=== PATIENT | female | born 1955 | race Caucasian/White ===

== ENCOUNTER 2019-02-17 14:52 | Observation (INO) ==
--- NOTE | 2019-02-17 15:17 | Emergency Department Note ---
Disposition Clinical Impression: TIA (transient ischemic attack) Qualifiers: Transient cerebral ischemia type: unspecified Qualified Code(s): G45.9 - Transient cerebral ischemic attack, unspecified Disposition: Admitted As Inpatient Condition: Fair Referrals: Cecelia Woodward CNP [Primary Care Provider] - Forms: ED Satisfaction Letter Time of Disposition: 17:06 General Adult HPI - General Chief complaint: ED Weakness Stated complaint: Weakness Source: EMS Limitations: no limitations Nursing Notes Reviewed: Yes Vital Signs Reviewed: Yes - History of Present Illness HPI Narrative: The patient presents per EMS and I did see her upon arrival and she did have an episode of weakness at home with significant weakness to both legs which occurred at 2:15 this afternoon. She feels that her speech is slurred. The patient does have a history of stroke. She denies any localized numbness or weakness of the extremities, facial droop or confusion. No pain, head, neck, chest, abdomen or back. has not yet arrived. She has no other complaints. Social history: Smoker. She does use oxygen at night. No alcohol or drugs Pain Scale: 0 - Related Data Home Medications Medication Instructions Recorded Confirmed Albuterol Sulfate [Proair Hfa] 2 puff IH Q4-6H PRN 11/01/17 11/07/17 Ascorbic Acid [Vitamin C] 500 mg PO DAILY 11/01/17 11/07/17 Aspirin Enteric Coated [Aspirin EC] 81 mg PO DAILY 11/01/17 11/07/17 Budesonide/Formoterol 160/4.5 2 puff IH BIDR 11/01/17 11/07/17 [Symbicort 160/4.5] Calcium Carbonate [Calcium] 600 mg PO DAILY 11/01/17 11/07/17 Cholecalciferol (D-3) [Vitamin D] 2,000 unit PO DAILY 11/01/17 11/07/17 Cyanocobalamin (Vitamin B-12) 500 mcg PO DAILY 11/01/17 11/07/17 [Vitamin B-12] Estradiol [Estrace] 1 appl VG 2XW 11/01/17 11/07/17 FLUoxetine HCl [Prozac] 20 mg PO BID 11/01/17 11/07/17 Fexofenadine HCl 60 mg PO BID PRN 11/01/17 11/07/17 Fluticasone Propionate Nasal 50 mcg NS BID PRN 11/01/17 11/07/17 [Flonase] Folic Acid 1 mg PO DAILY 11/01/17 11/07/17 Gabapentin [Neurontin] 600 mg PO TID 11/01/17 11/07/17 Latanoprost [Xalatan] 1 drop OP HS 11/01/17 11/07/17 Multivitamin [One Daily Essential] 1 each PO DAILY 11/01/17 11/07/17 [place]-3/Dha/Epa/Fish Oil [Fish Oil 1,000 mg PO DAILY 11/01/17 11/07/17 1,000 mg Softgel] Trazodone HCl 75 mg PO HS 11/01/17 11/07/17 Umeclidinium Bernice [Incruse 62.5 mcg IH DAILY 11/01/17 11/07/17 Ellipta] Vitamin E Acid Succinate [Vitamin 400 units PO DAILY 11/01/17 11/07/17 E] diazePAM [Valium] 10 mg PO BID PRN 11/01/17 11/07/17 Previous Rx's Medication Instructions Recorded Atorvastatin [Lipitor] 20 mg PO HS #30 tablet 11/03/17 Clopidogrel [Plavix] 75 mg PO DAILY #30 tablet 11/03/17 Lisinopril-HCTZ 20-12.5 [Prinzide 1 each PO DAILY #30 tablet 11/03/17 20-12.5] cloNIDine HCl [CloNIDine HCl] 0.1 mg PO TID #90 tablet 11/03/17 Allergies Allergy/AdvReac Type Severity Reaction Status Date / Time naproxen [From Aleve] AdvReac Nose Bleed Verified 04/30/16 21:37 All systems ED: reviewed and negative except as stated. Past Medical History - Past Medical History Medical history: Reports: COPD, CVA, fibromyalgia, hyperlipidemia, hypertension, pulmonary embolus Surgical history: Reports: cholecystectomy, hysterectomy Psychiatric history: Reports: anxiety, depression - Social History Smoking Status: Current every day smoker Smokeless Tobacco Status: No Alcohol use: Reports: rarely Drug use: Reports: none Physical Exam CONSTITUTIONAL: Alert and oriented X3, well-nourished, well appearing, in no apparent distress HEAD: Normocephalic; atraumatic. EYES: PERRL, no scleral icterus. NOSE: The nose is normal in appearance without rhinorrhea RESP: Normal chest excursion with respiration; breath sounds clear and equal bilaterally; no wheezes, rhonchi, or rales CARD: Regular rhythm, without murmurs, rub or gallop ABD: Non-distended; non-tender, soft,without rigidity, rebound or guarding SKIN: Normal for age and race; warm and dry; no apparent lesions Neuro: NIH stroke scale is 0see NIH documentation - General Limitations: no limitations General appearance: alert Course Vital Signs Temperature 99.2 F 02/17/19 14:57 Pulse Rate 65 02/17/19 14:57 Respiratory Rate 18 02/17/19 14:57 Blood Pressure 120/58 02/17/19 14:57 O2 Sat by Pulse Oximetry 89 02/17/19 14:57 Temperature 99.2 F 02/17/19 14:57 Pulse Rate 65 02/17/19 14:57 Respiratory Rate 18 02/17/19 14:57 Blood Pressure 120/58 02/17/19 14:57 O2 Sat by Pulse Oximetry 89 02/17/19 14:57 Oxygen Delivery Oxygen Delivery Room Air Medical Decision Making - MDM Narrative Medical decision making narrative: The patient's speech does not seem abnormal to me, her NIH stroke scale is 0, we will wait for the to arrive. The patient does have testing ordered including head CAT scan and this may have been from a TIA however at this point the patient is not a thrombolytic candidate due to the extremely low stroke scale as well as the fact that I have not diagnosed her as having a stroke. 1517 I did review the patient's test results without evidence of intracranial hemorrhage him a chest x-ray was reviewed, labs do not show concerning abnormality I did speak with her again and the is now here who says that in addition to the one hour of slurred speech which she had and is now resolved she also did have about 10 or 15 minutes of confusion which is also now resolved. The symptoms are most consistent with TIA. Patient will be admitted. I will do a bedside swallow study because she wants to eat so the nurse can do that here and if this is okay she will be fed. Again her symptoms are completely resolved. She does take an aspirin a day so no additional anticoagulation is given at this time. The hospitalist is paged. 1701 I did speak with the hospitalist Dr. La who accepts the patient for admission 1712 I did review the patient's EKG showing sinus bradycardia with a rate of 58 and some baseline artifact but without acute ischemic change 1739 - Medical Records Medical records reviewed: Yes I reviewed the patient's medical records. - Lab Data Lab results reviewed: Yes I reviewed the patient's lab results. Result diagrams: 02/17/19 15:27 02/17/19 15:27 Lab Results 02/17/19 02/17/19 02/17/19 Range/Units 15:17 15:27 15:27 WBC 10.6 (4.3-11.1) K/mcL RBC 5.05 H (3.82-4.97) M/mcL Hgb 15.2 (11.5-15.4) g/dL Hct 46.5 H (35.3-44.9) % MCV 92.1 (83.0-100.0) fL MCH 30.1 (28.0-33.3) pg MCHC 32.7 (31.6-35.5) g/dL RDW 12.5 (11.5-14.5) % Plt Count 450 H (140-400) K/mcL MPV 9.8 (9.4-12.4) fL Immature Gran % 0.4 (0-4) % Seg Neutrophils % 67.9 % Lymphocytes % 20.7 % Monocytes % 9.7 % Eosinophils % 0.8 % Basophils % 0.5 % Neutrophils # 7.2 (1.6-8.9) K/mcL Lymphocytes # 2.2 (0.6-4.6) K/mcL Monocytes # 1.0 (0.0-1.3) K/mcL Eosinophils # 0.1 (0.0-0.6) K/mcL Basophils # 0.1 (0.0-0.2) K/mcL Sodium 138 (136-145) mEq/L Potassium 3.9 (3.5-5.1) mEq/L Chloride 104 (98-107) mEq/L Carbon Dioxide 27 (23-29) mEq/L BUN 15 (8-23) mg/dL Creatinine 0.71 (0.60-1.20) mg/dL Est GFR ( Amer) > 60 (> 60) Est GFR (Non-Af Amer) > 60 (> 60) BUN/Creatinine Ratio 21 (6-26) Glucose 74 (70-105) mg/dL Calculated Osmolality 285 (280-300) Calcium 9.3 (8.6-10.3) mg/dL Total Bilirubin 0.8 (0.3-1.0) mg/dL AST 38 (13-39) Units/L ALT 23 (7-52) Units/L Alkaline Phosphatase 86 (34-104) Units/L Troponin I < 0.03 (< 0.04) ng/mL Serum Total Protein 7.7 (6.4-8.9) g/dL Albumin 3.8 (3.5-5.7) g/dL Globulin 3.9 H (2.4-3.5) g/dL Albumin/Globulin Ratio 1.0 L (1.1-2.2) Urine Color Dark Yellow (Yellow) Urine Clarity Clear (Clear) Urine pH 6.0 (5.0-8.0) pH Units Ur Specific [place] 1.021 (1.010-1.025) Urine Protein 30 H (Neg-Trace) mg/dL Urine Glucose (UA) Normal (Normal) mg/dL Urine Ketones Negative (Negative) mg/dL Urine Blood Negative (Negative) Urine Nitrite Negative (Negative) Urine Bilirubin Negative (Negative) Urine Urobilinogen Normal (Normal) mg/dL Ur Leukocyte Esterase Moderate H (Negative) Urine Microscopic RBC 0-3 (0-3) per hpf Urine Microscopic WBC 5-15 H (0-3) per hpf Ur Squamous Epith Cells Many H (None-Few) per lpf Urine Bacteria Few (None-Few) per hpf Hyaline Casts None Seen (None-Few) per lpf Ur Culture Indicated? NO. A (NO) - Radiology Data Radiology results reviewed: Yes I reviewed the patient's radiology results.
[2019-02-17 15:37] LABS: Basophils # 0.1 K/mcL (0.0-0.2); Basophils % 0.5 %; Eosinophils # 0.1 K/mcL (0.0-0.6); Eosinophils % 0.8 %; Hematocrit 46.5 % (35.3-44.9); Hemoglobin 15.2 g/dL (11.5-15.4); Immature Granulocytes % 0.4 % (0-4); Lymphocytes # 2.2 K/mcL (0.6-4.6); Lymphocytes % 20.7 %; Mean Corpuscular HGB Conc 32.7 g/dL (31.6-35.5); Mean Corpuscular Hemoglobin 30.1 pg (28.0-33.3); Mean Corpuscular Volume 92.1 fL (83.0-100.0); Mean Platelet Volume 9.8 fL (9.4-12.4); Monocytes % 9.7 %; Neutrophils # 7.2 K/mcL (1.6-8.9); Platelet Count 450 K/mcL (140-400); Red Blood Count 5.05 M/mcL (3.82-4.97); Red Cell Distribution Width 12.5 % (11.5-14.5); Segmented Neutrophils % 67.9 %
[2019-02-17 15:43] LABS: Bilirubin,Urine Negative (Negative); Blood,Urine Negative (Negative); Clarity,Urine Clear (Clear); Color,Urine Dark Yellow (Yellow); Glucose,Urine (UA) Normal (Normal); Ketones,Urine Negative (Negative); Leukocyte Esterase,Urine Moderate (Negative); Nitrite,Urine Negative (Negative); Protein,Urine 30 mg/dL (Neg-Trace); Specific Gravity,Urine 1.021 (1.010-1.025); Urobilinogen,Urine Normal (Normal)
[2019-02-17 15:46] LABS: Bacteria,Urine Few per hpf (None-Few); Hyaline Casts,Urine None Seen per lpf (None-Few); RBC,Urine 0-3 per hpf (0-3); Squamous Epithelial Cell,Urine Many per lpf (None-Few)
[2019-02-17 16:02] LABS: Alanine Aminotransferase 23 Units/L (7-52); Albumin 3.8 g/dL (3.5-5.7); Alkaline Phosphatase 86 Units/L (34-104); Aspartate Amino Transferase 38 Units/L (13-39); BUN/Creatinine Ratio 21 (6-26); Bilirubin,Total 0.8 mg/dL (0.3-1.0); Blood Urea Nitrogen 15 mg/dL (8-23); Calcium 9.3 mg/dL (8.6-10.3); Carbon Dioxide 27 mEq/L (23-29); Chloride 104 mEq/L (98-107); Globulin 3.9 g/dL (2.4-3.5); Glucose 74 mg/dL (70-105); Osmolality,Calculated 285 (280-300); Potassium 3.9 mEq/L (3.5-5.1); Sodium 138 mEq/L (136-145); Total Protein 7.7 g/dL (6.4-8.9); Troponin I < 0.03 ng/mL (< 0.04); eGFR For Non-African Americans > 60 (> 60)
[2019-02-17] MEDS ORDERED: Naloxone 0.4 MG/ML INJ IVP PRN (18:51)
[2019-02-17] MEDS: Gabapentin 300 MG CAPSULE PO SCH (22:15)
--- NOTE | 2019-02-17 22:56 | Internal Med History&Physical ---
Date of Encounter: 02/17/19 Time of Encounter: 19:00 Internal Medicine - H&P: HPI Chief complaint: Weakness in legs Admitted From: Home Plans for Post Hospital Care: Home History of present illness: The patient is a 63-year-old woman. It was today afternoon, when she developed significant weakness to her both legsneeded assistance for walking. She did not develop any localized numbness or weakness of her extremities. Her speech is somewhat garbled. However, she tells me that it is from missing her artificial teeth. The weakness described above lasted for about 10-15 minutes. I did see her walking without difficulties, when I arrived to the room. She feels normal self at the time of my examination. PAST MEDICAL HX: She has been treated for hypertension, hyperlipidemia, COPD, and fibromyalgia. She was diagnosed with a CVA and pulmonary embolus in the past. She has been treated for depression and anxiety. She had cholecystectomy and hysterectomy. PAST FAMILY HX: See below PAST SOCIAL HX: She is a current every day smoker. She drinks alcohol extremely rarely. There is no history of illicit drug use. REVIEW OF SYSTEMS: All 14 organ systems were reviewed by me with the patient. Positive and pertinent negative findings are listed above. The rest of organ systems is negative. PHYSICAL EXAM: Skin: Free of rash and discoloration. Eyes: Sclera is white. There is no discharge from eyes. ENMT: Oral/pharyngeal mucosa is normal in appearance. There is no discharge from nose or ears. Respiratory: Normal breath sounds with no crackles and wheezes bilaterally. CV: Heart is regular with no gallop or murmur. GI: Abdomen is flat and soft with no palpable mass or visceromegaly. : There is no tenderness in patient's flanks bilaterally. Neuro exam: He has good strength in upper and lower extremities. He has normal eye movements. Psychiatric: He has normal affect. His thought process is appropriate to the situation. ADDITIONAL DATA: Portable chest x-ray shows chronic appearing coarse interstitial densities. CT of the head does not show any acute intracranial abnormality. It shows moderate chronic small ischemic disease. CBC shows hemoglobin of 15.2 with WBC of 10.6 thousand and platelet count of 450,000. BMP and hepatic panel are normal. UA shows 5-15 urine microscopic WBC with moderate leukocyte esterase and negative nitrate. She has no urinary symptoms. A/P: An episode of weakness in her both legs. Could be secondary to postural hypotension and/or some cardiac arrhythmia. Doubt it represents a TIA. I will continue her Plavix. She had a CTA of neck in October 2017. There was no significant hemodynamically abnormality. Her echocardiogram from October 2017 showed normal findings. She will be likely discharged home tomorrow after 24-hour observation. Her other problems are mentioned in past medical history. They are chronic/stable/under control. Past Med Surg Social Fam HX - Past Medical History Medical history: COPD, CVA, fibromyalgia, hyperlipidemia, hypertension, pulmonary embolus Psychiatric history: anxiety, depression - Past Surgical History Surgical History: cholecystectomy, hysterectomy Additional surgical history: ear sx - Social History Smoking Status: Current every day smoker Packs per day: half Smokeless Tobacco Status: No Alcohol use: rarely Drug use: none - Family History Father Living Status: Age at : 78 Hx Family Neurologic Disorders: Yes (ALZ, Dementia) Mother Living Status: Age at : 59 Cause of : bone cancer Internal Medicine - H&P: Meds Calcium Carbonate [Calcium] 600 mg PO DAILY 11/01/17 [History] Cholecalciferol (D-3) [Vitamin D] 2,000 unit PO DAILY 11/01/17 [History] Cyanocobalamin (Vitamin B-12) [Vitamin B-12] 500 mcg PO DAILY 11/01/17 [History] FLUoxetine HCl [Prozac] 20 mg PO BID 11/01/17 [History] Fexofenadine HCl 60 mg PO BID PRN 11/01/17 [History] Gabapentin [Neurontin] 600 mg PO TID 11/01/17 [History] Clopidogrel [Plavix] 75 mg PO DAILY #30 tablet 11/03/17 [Rx] Allergy/AdvReac Type Severity Reaction Status Date / Time naproxen [From Aleve] AdvReac Nose Bleed Verified 04/30/16 21:37 - Constitutional Vitals: Temp Pulse Resp BP Pulse Ox 97.7 F 55 16 139/81 93 02/17/19 18:41 02/17/19 18:41 02/17/19 18:41 02/17/19 18:41 02/17/19 18:41 General appearance: Present: A&O X 3, no acute distress, answers questions appr opriately Exam: xx Internal Med - H&P Results - Labs CBC & Chem 7: 02/17/19 15:27 02/17/19 15:27 Labs: Short CBC 02/17/19 Range/Units 15:27 WBC 10.6 (4.3-11.1) K/mcL Hgb 15.2 (11.5-15.4) g/dL Hct 46.5 H (35.3-44.9) % Plt Count 450 H (140-400) K/mcL Neutrophils # 7.2 (1.6-8.9) K/mcL BMP 02/17/19 15:27 Sodium 138 Potassium 3.9 Chloride 104 Carbon Dioxide 27 BUN 15 Creatinine 0.71 Glucose 74 Calcium 9.3 Cardiac Enzymes 02/17/19 Range/Units 15:27 Troponin I < 0.03 (< 0.04) ng/mL Liver Function 02/17/19 Range/Units 15:27 Total Bilirubin 0.8 (0.3-1.0) mg/dL AST 38 (13-39) Units/L ALT 23 (7-52) Units/L Alkaline Phosphatase 86 (34-104) Units/L Albumin 3.8 (3.5-5.7) g/dL Urine 02/17/19 Range/Units 15:17 Urine Color Dark Yellow (Yellow) Urine Clarity Clear (Clear) Urine pH 6.0 (5.0-8.0) pH Units Ur Specific [place] 1.021 (1.010-1.025) Urine Protein 30 H (Neg-Trace) mg/dL Urine Glucose (UA) Normal (Normal) mg/dL - Impressions ITS Impressions Chest X-Ray 02/17/19 15:17 IMPRESSION: Findings of congestive heart failure on a background of chronic interstitial lung disease possibly related to sequela from smoking. Calcific atherosclerotic disease aorta. D/ / Logan Taylor / Logan Taylor Interpreting Provider: Logan Taylor Head CT 02/17/19 15:18 IMPRESSION: No acute intracranial abnormality. Moderate chronic small ischemic disease. D/ / Rufino Ashley / Rufino Ashley Interpreting Provider: Rufino Ashley - Assessment and Plan (1) Weakness of both legs Current Visit: Yes Status: Acute (2) Old cerebrovascular accident (CVA) without late effect Current Visit: Yes Status: Chronic (3) Hypertension Current Visit: Yes Status: Chronic Qualifiers: Hypertension type: essential hypertension Qualified Code(s): I10 - Essential (primary) hypertension - Time Spent With Patient Total time spent is greater than 50% in coordination of care (as documented) at patient's floor/unit and/or counseling patient: 25 - 35 minutes
[2019-02-18] MEDS: Gabapentin 300 MG CAPSULE PO SCH (08:17)
[2019-02-18] MEDS ORDERED: Cholecalciferol (D-3) 1,000 UNIT TABLET PO SCH (09:00)
[2019-02-18] MEDS ORDERED: Loratadine 10 MG TABLET PO PRN (12:02)
[2019-02-18] MEDS ORDERED: amLODIPine 5 MG TABLET PO SCH (12:15)
[2019-02-18 12:47] VITALS: BP 133/85
--- NOTE | 2019-02-18 12:52 | Discharge Summary ---
Orders not resulted at time of discharge: Pending orders 02/17/19 15:17 ECG 12 lead ECG [ECG] Stat Date of Encounter: 02/18/19 Time of Encounter: 12:50 - Discharge Diagnosis (1) Hypertension Priority: Secondary Status: Chronic Qualifiers: Hypertension type: essential hypertension Qualified Code(s): I10 - Essential (primary) hypertension (2) Weakness of both legs Priority: Primary Status: Resolved (3) Old cerebrovascular accident (CVA) without late effect Priority: Secondary Status: Chronic Hospital course: Ms. Aguirre is a 63 year old female with past medical history of hypertension, hyperlipidemia, COPD, and fibromyalgia who was admitted for acute lower extremity weakness. Patient was admitted for concern for TIA and closely monitored overnight. Patient's workup remained negative and patient reported complete resolution of her presenting symptoms. Patient was seen and examined with family and RN present at bedside. Patient reports resolution of all her presenting symptoms and wishes to be discharged home today. Patient denies any discomfort at this time. Labs and vitals are reviewed. Patient is medically stable for discharge to home with outpatient follow-up with PCP. Patient and family demonstrated understanding of the diagnosis and agree with the discharge plan. Discharge discussed with: patient, family, nurse - Time Spent with Patient Total time spent providing and/or coordinating discharge services: Time spent: Less than 30 minutes - Discharge Medications Prescriptions: Continue Cholecalciferol (D-3) [Vitamin D] 2,000 unit PO DAILY FLUoxetine HCl [Prozac] 20 mg PO BID Gabapentin [Neurontin] 600 mg PO BID Fexofenadine HCl 60 mg PO BID PRN PRN Reason: Allergy Symptoms Cyanocobalamin (Vitamin B-12) [Vitamin B-12] 500 mcg PO DAILY Calcium Carbonate [Calcium] 600 mg PO DAILY Clopidogrel [Plavix] 75 mg PO DAILY #30 tablet Trazodone HCl 150 mg PO HS Losartan Potassium 50 mg PO DAILY Amlodipine Besylate 5 mg PO DAILY Home Medications: Calcium Carbonate [Calcium] 600 mg PO DAILY 11/01/17 [History] Cholecalciferol (D-3) [Vitamin D] 2,000 unit PO DAILY 11/01/17 [History] Cyanocobalamin (Vitamin B-12) [Vitamin B-12] 500 mcg PO DAILY 11/01/17 [History] FLUoxetine HCl [Prozac] 20 mg PO BID 11/01/17 [History] Fexofenadine HCl 60 mg PO BID PRN 11/01/17 [History] Gabapentin [Neurontin] 600 mg PO BID 11/01/17 [History] Clopidogrel [Plavix] 75 mg PO DAILY #30 tablet 11/03/17 [Rx] Amlodipine Besylate 5 mg PO DAILY 02/18/19 [History] Losartan Potassium 50 mg PO DAILY 02/18/19 [History] Trazodone HCl 150 mg PO HS 02/18/19 [History] Allergies/Adverse Reactions: Allergy/AdvReac Type Severity Reaction Status Date / Time naproxen [From Aleve] AdvReac Nose Bleed Verified 04/30/16 21:37 Date of admission: 02/17/19 18:11 Primary care physician: Cecelia Woodward CNP Discharging clinician: Brittany Nj Anticipated date of discharge: 02/18/19 - Constitutional Vitals: Temp Pulse Resp BP Pulse Ox 98.4 F 80 15 133/85 89 02/18/19 12:46 02/18/19 12:46 02/18/19 12:46 02/18/19 12:46 02/18/19 12:46 General appearance: Present: A&O X 3, no acute distress, answers questions appropriately Exam: General: No acute distress, AAO x 3 HEENT: EOMI, NC/AT, no scleral icterus, PERRLA Respiratory: Clear to auscultate bilaterally, no wheezing, no rales Cardiovascular: Regular, Rate, Rhythm, No murmurs GI: Soft, Non tender, non distended, normal bowel sounds Ext: No edema, no tenderness, positive pulses Neuro: AAO x 3, no focal deficits, CN II-XII intact - Patient Status Disposition: Home, Self-Care Condition: Good Functional capacity at discharge: independent ambulation - Discharge Instructions Instructions: Transient Ischemic Attack (DC), Chronic Hypertension (DC) Follow Up With: Cecelia Woodward CNP [Primary Care Provider] - Additional Instructions: 1. Please follow-up with your primary care physician within 5 days after your discharge from the hospital 2. Please resume all your home medications as prescribed by your primary care physician. - Diet and Activity Activity: resume usual activities as tolerated Diet: low fat, low cholesterol, low salt diet
[2019-02-18] MEDS ORDERED: FLUoxetine 20 MG CAPSULE PO SCH (21:00)
[2019-02-19] MEDS ORDERED: Cyanocobalamin (B-12) 1,000 MCG TABLET PO SCH (09:00)
--- NOTE | 2019-02-22 07:57 | Electrocardiograph Report ---
[place] [id number] Test Date: 2019-02-17 Pat Name: Zuleyka Aguirre Department: [id number] Room: 3B45 Gender: F Core Shaper: : 1955 Requested By: Chilo Evans Order Number: [id number] Reading MD: Villa Farmer Measurements Intervals [place] Rate: 58 P: 44 ND: 141 QRS: 15 QRSD: 136 T: 75 QT: 426 QTc: 419 Interpretive Statements Sinus rhythm Nonspecific ST-T changes Artifact complicates interpretation, consider repeat ECG Electronically Signed On 02-22-2019 7:56:30 EDT by Villa Farmer
== END 2019-02-18 13:45 | disposition home or self-care (01) ==
LOC: 3BNU 14:52 → EMEROOARM 14:52 → SUATTDRO 18:11 → 3BNU 18:21
PROVIDERS: ADMIT Internal Medicine; ATTEND Internal Medicine

== ENCOUNTER 2020-05-07 13:45 | Observation (INO) ==
[2020-05-07] MEDS ORDERED: Lidocaine/EPI 1:200k 1% PF 10 ML VIAL ONE ×2 (14:09→16:14)
[2020-05-07] MEDS ORDERED: Ringers Solution, Lactated 1,000 ML IVC SCH (14:15)
[2020-05-07] MEDS ORDERED: *HR* Promethazine 25 MG/ML VIAL IVP PRN ×2 (14:32→21:18)
[2020-05-07] MEDS ORDERED: Ondansetron 4 MG/2 ML VIAL IVP ONE (14:32)
[2020-05-07] MEDS ORDERED: *HR* OxyCODONE Immed Rel 5 MG TABLET PO PRN (14:32)
[2020-05-07] MEDS ORDERED: CeFAZolin Syr 2,000MG/20 ML 2,000 MG/20 ML SYRINGE IVPB ONE (14:41)
[2020-05-07] MEDS ORDERED: Ondansetron 4 MG/2 ML VIAL ONE (15:47)
[2020-05-07] MEDS ORDERED: *HR* FentaNYL (PF) 100 MCG/2 ML VIAL ONE ×2 (15:47→16:59)
[2020-05-07] MEDS ORDERED: Lidocaine -MPF 2% 2 ML VIAL ONE (15:47)
[2020-05-07] MEDS ORDERED: *HR* Midazolam HCl 2 MG/2 ML VIAL ONE (15:48)
[2020-05-07] MEDS ORDERED: *HR* Propofol 200 MG/20 ML VIAL IVP ONE (15:48)
[2020-05-07] MEDS ORDERED: Dexamethasone 4 MG/ML VIAL ONE ×2 (15:50→16:36)
[2020-05-07] MEDS ORDERED: Ropivacaine/PF 0.5% 30 ML VIAL ONE (15:53)
[2020-05-07] MEDS ORDERED: ROPIVACAINE/PF/NS 0.25% 1 EACH SYRINGE INTRAART ONE (15:53)
[2020-05-07] MEDS ORDERED: *HR* Rocuronium Bromide 50 MG/5 ML VIAL ONE (16:14)
[2020-05-07] MEDS ORDERED: *HR* Labetalol 20 MG/4 ML SYRINGE IVP ONE ×2 (16:41→17:46)
[2020-05-07] MEDS: *HR* HYDROmorphone PF 0.5 MG/0.5 ML SYRINGE IVP PRN ×2 (17:32→17:47)
[2020-05-07] MEDS ORDERED: *HR* HYDROmorphone PF 0.5 MG/0.5 ML SYRINGE IVP PRN (17:43)
[2020-05-07] MEDS ORDERED: *HR* Labetalol 20 MG/4 ML SYRINGE IVP STA (17:44)
[2020-05-07] MEDS ORDERED: Albuterol 2.5 MG/3 ML NEBULIZER IH ONE (20:33)
[2020-05-07] MEDS ORDERED: Albuterol 2.5 MG/3 ML NEBULIZER ONE (20:38)
[2020-05-07] MEDS ORDERED: Gabapentin 300 MG CAPSULE PO PRN (21:17)
[2020-05-07] MEDS ORDERED: Naloxone 0.4 MG/ML INJ IVP PRN (21:18)
[2020-05-07 22:06] LABS: Basophils % 0.1 %; Hematocrit 47.6 % (35.3-44.9); Hemoglobin 15.5 g/dL (11.5-15.4); Immature Granulocytes % 0.7 % (0-4); Lymphocytes # 0.6 K/mcL (0.6-4.6); Lymphocytes % 3.7 %; Mean Corpuscular HGB Conc 32.6 g/dL (31.6-35.5); Mean Corpuscular Hemoglobin 31.3 pg (28.0-33.3); Mean Corpuscular Volume 96.2 fL (83.0-100.0); Monocytes # 0.2 K/mcL (0.0-1.3); Monocytes % 0.9 %; Platelet Count 492 K/mcL (140-400); Red Blood Count 4.95 M/mcL (3.82-4.97); Red Cell Distribution Width 11.8 % (11.5-14.5); Segmented Neutrophils % 94.6 %; White Blood Count 16.9 K/mcL (4.3-11.1)
[2020-05-07 22:25] LABS: Alanine Aminotransferase 37 Units/L (7-52); Albumin 3.9 g/dL (3.5-5.7); Alkaline Phosphatase 89 Units/L (34-104); Aspartate Amino Transferase 84 Units/L (13-39); BUN/Creatinine Ratio 20 (6-26); Bilirubin,Total 0.8 mg/dL (0.3-1.0); Blood Urea Nitrogen 14 mg/dL (8-23); Calcium 9.6 mg/dL (8.6-10.3); Carbon Dioxide 26 mEq/L (23-29); Chloride 101 mEq/L (98-107); Globulin 3.8 g/dL (2.4-3.5); Glucose 151 mg/dL (70-105); Osmolality,Calculated 285 (280-300); Potassium 3.6 mEq/L (3.5-5.1); Sodium 136 mEq/L (136-145); Total Protein 7.7 g/dL (6.4-8.9); eGFR For African Americans > 60 (> 60); eGFR For Non-African Americans > 60 (> 60)
[2020-05-07] MEDS ORDERED: Ipratropium/Albuterol Neb 3 ML IH PRN (22:56)
[2020-05-08 05:58] LABS: Basophils % 0.1 %; Hematocrit 46.2 % (35.3-44.9); Hemoglobin 15.1 g/dL (11.5-15.4); Immature Granulocytes % 0.6 % (0-4); Lymphocytes # 0.9 K/mcL (0.6-4.6); Lymphocytes % 7.6 %; Mean Corpuscular HGB Conc 32.7 g/dL (31.6-35.5); Mean Corpuscular Hemoglobin 31.4 pg (28.0-33.3); Mean Platelet Volume 10.1 fL (9.4-12.4); Monocytes # 0.4 K/mcL (0.0-1.3); Monocytes % 3.2 %; Neutrophils # 10.6 K/mcL (1.6-8.9); Platelet Count 470 K/mcL (140-400); Red Blood Count 4.81 M/mcL (3.82-4.97); Red Cell Distribution Width 11.8 % (11.5-14.5); Segmented Neutrophils % 88.5 %; White Blood Count 11.9 K/mcL (4.3-11.1)
[2020-05-08 06:00] LABS: INR 1.1; Prothrombin Time 12.8 Seconds (9.4-12.1)
[2020-05-08 06:16] LABS: BUN/Creatinine Ratio 25 (6-26); Blood Urea Nitrogen 15 mg/dL (8-23); Calcium 9.6 mg/dL (8.6-10.3); Carbon Dioxide 27 mEq/L (23-29); Chloride 100 mEq/L (98-107); Glucose 139 mg/dL (70-105); Magnesium 1.7 mg/dL (1.6-2.6); Osmolality,Calculated 287 (280-300); Phosphorous 3.6 mg/dL (2.7-4.5); Potassium 3.8 mEq/L (3.5-5.1); Sodium 137 mEq/L (136-145); eGFR For African Americans > 60 (> 60); eGFR For Non-African Americans > 60 (> 60)
[2020-05-08] MEDS ORDERED: amLODIPine 5 MG TABLET PO SCH (09:00)
[2020-05-08] MEDS ORDERED: FLUoxetine 20 MG CAPSULE PO SCH (09:00)
[2020-05-08] MEDS ORDERED: Cholecalciferol (D-3) 1,000 UNIT (25MCG) TABLET PO SCH (09:00)
[2020-05-08 11:15] VITALS: BP 139/81
== END 2020-05-08 11:39 | disposition home or self-care (01) ==
LOC: 3NENU 13:45 → SAMDAY 13:45 → 3NENU 20:45 → SUATTDRO 21:03
PROVIDERS: ADMIT Internal Medicine; ATTEND Family Medicine